=== PATIENT | male | born 1995 | race Caucasian/White ===

== ENCOUNTER 2018-07-15 09:02 | Emergency (ER) | payer OTHER, SELFPAY ==
[2018-07-15 09:11] VITALS: BP 160/96; PULSE 82; RESP 18; TEMP 36.4; O2SAT 100; BMI 26.6
--- NOTE | 2018-07-15 10:48 | ED.BACK ---
HPI - Back Pain/Injury General Chief Complaint: Back Pain/Injury Stated Complaint: LOWER RIGHT SIDE BACK PAIN Time Seen by Provider: 07/15/18 10:13 Source: patient Mode of arrival: ambulatory Limitations: no limitations History of Present Illness HPI Narrative: Patient comes to the emergency department complaining of right-sided back pain that started suddenly last night. Patient states he was feeling fine yesterday, and that he has not really had any other symptoms along with the back and flank pain. Patient states the pain radiates down into his right groin area. He denies any nausea or vomiting, other than feeling slightly nauseated when he drink a whole bunch of water. He denies any fevers. No abdominal pain otherwise. No dysuria. No hematuria. No diarrhea or constipation. Patient states he has had symptoms like this once before, but they were short lived and he never got a medical evaluation. He states his grandpa had lots of kidney stones, but that his father did not have any. Patient denies any strenuous activity with his back. He denies any repetitive motions. No distinct injury. No other complaints at this time. Related Data Home Medications Medication Instructions Recorded Confirmed albuterol sulfate [ProAir HFA] 2 puff INHALATION Q4H PRN 07/15/18 07/15/18 cetirizine [Zyrtec] 10 mg PO DAILY 07/15/18 07/15/18 duloxetine 30 mg PO DAILY 07/15/18 07/15/18 finasteride 1.25 mg PO DAILY 07/15/18 07/15/18 montelukast 10 mg PO DAILY 07/15/18 07/15/18 Previous Rx's Medication Instructions Recorded hydrocodone-acetaminophen 1 tab PO Q6H PRN #14 tab 07/15/18 tamsulosin [Flomax] 0.4 mg PO DAILY #7 cap 07/15/18 Allergies Allergy/AdvReac Type Severity Reaction Status Date / Time No Known Drug Allergies Allergy Verified 07/15/18 09:14 Review of Systems Constitutional Denies chills, Denies fever(s), Denies lethargy and Denies weakness Eyes Denies change in vision, Denies eye discharge, Denies irritation and Denies loss of vision ENT Ears, Nose, Mouth, and Throat: Denies change in voice, Denies neck pain and Denies sore throat Cardiovascular Denies chest pain, Denies irregular heart rhythm, Denies lightheadedness, Denies palpitations, Denies dyspnea, Denies dyspnea on exertion and Denies orthopnea Respiratory Denies cough, Denies dyspnea, Denies dyspnea on exertion and Denies wheezing Gastrointestinal Gastrointestinal: Denies abdominal pain, Denies change in bowel habits, Denies diarrhea, Denies nausea and Denies vomiting Genitourinary Denies hematuria, Denies flank pain, Denies urinary incontinence and Denies urinary urgency Musculoskeletal Denies neck pain Comments: Right flank pain, right CVA pain Integumentary/Breasts Denies pruritus, Denies erythema, Denies rash and Denies wounds Neurologic Denies confusion, Denies loss of vision and Denies weakness Psychiatric Denies anxiety, Denies confusion, Denies depression, Denies homicidal ideation and Denies suicidal ideation Endocrine Denies palpitations Hematologic/Lymphatic Denies easy bruising Allergic/Immunologic Denies wheezing [facility] Medical History Healthy adult (Acute) Social History Smoking Status: Never smoker Social History Smoking Status: Never smoker Exam Initial Vital Signs Initial Vital Signs: Vital Signs Temperature 97.5 F L 07/15/18 09:11 Pulse Rate 82 07/15/18 09:11 Respiratory Rate 18 07/15/18 09:11 Blood Pressure 160/96 H 07/15/18 09:11 Pulse Oximetry 100 07/15/18 09:11 Const General: cooperative and well developed Nutritional Appearance: well nourished Orientation: alert, awake, oriented x3 and not confused [facility] Head: normocephalic and atraumatic Ears: external ears normal Nose: external nose normal and No nasal discharge Face and sinus: face symmetric and No dry mucous membranes Mouth: oral mucosae normal and moist mucous membranes Teeth and gingiva: dentition normal Eyes General: appearance normal, both eyes and all related structures Eyelids: eyelids normal Conjunctivae: conjunctivae normal Sclera: sclerae normal Pupils: PERRL EOM: EOM intact bilaterally Neck Neck: normal visual inspection, trachea midline, No lymphadenopathy, No midline deformity and No JVD Lymphatic: No lymphedema Chest Chest: normal inspection of the chest Resp Effort & Inspection: normal respiratory effort, able to speak in complete sentences, no respiratory distress and no use of accessory muscles Auscultation: clear to auscultation bilaterally, no rales, no rhonchi and no wheezes Cardio Rate: regular rate Rhythm: regular rhythm Heart Sounds: no click, no gallops, no murmurs and no rubs Pulses: normal peripheral pulses GI Inspection: non-distended Palpation: soft, no hepatosplenomegaly, No guarding, No pulsatile mass and tender (Mild, right flank and lower quadrant. No rebound or guarding.) Auscultation: normal bowel sounds Back/Spine/Pelvis Back: CVA tenderness (Slight, right) Cervical Spine: cervical ROM normal and No pain with cervical ROM Thoracic/Lumbar Spine: thoracic and lumbar spine normal to inspection Skin General: no rashes or lesions noted, No jaundice and No petechiae Neuro General: alert, oriented x3, gait normal and no focal motor deficits Speech: speech normal Extrem General: full ROM, no clubbing, cyanosis or edema, no pedal edema and no calf tenderness Psych Appearance: well kempt Mental Status: mental status grossly normal Attitude: cooperative Thought Content: normal and suicidality Judgment: judgment good Course Course Narrative: Patient was worked up with UA and CT KUB without contrast. CT scan showed hydronephrosis and hydroureter extending to the UVJ on the right. No definite stone was seen, and the possibility was raised of a radiolucent stone or stricture. I discussed the findings with the patient, and felt that most likely since the patient had never had symptoms before, he had a radiolucent stone. However, I did discuss with him that it is important for him to follow up with Urology to sort this out, and to be sure that his blockage is clearing. Patient expressed understanding and agreed to plan. We have discussed the usual indications for return. Orders Ordered: ED Orders 07/15/18 10:47 CT kidney ureter bladder (KUB) Stat Vital Signs - 8 hr 07/15/18 09:11 Temperature 97.5 F L Pulse Rate 82 Respiratory Rate 18 Blood Pressure 160/96 H Pulse Oximetry 100 MDM - Back Pain/Injury Medical Records Attestation: I reviewed the patient's medical records. Lab Data Attestation: I reviewed the patient's lab results. Urine Dip Bedside Urine Glucose Negative Bedside Urine Bilirubin - Negative Bedside Urine Ketone - Negative Urine Specific [place] 1.015 Bedside Urine Occult Blood - Negative Bedside Urine pH 6.0 Bedside Urine Protein - Negative Bedside Urine Urobilinogen - Negative Bedside Urine Nitrite - Negative Bedside Urine Leukocytes - Negative Esterase Imaging Data CT scan - abdomen: Radiologist's impression: [address] [address] [address] Scan Report Signed Patient: Dimitri Martines [facility]#: [id number] : 1995Acct:[id number] Age/Sex: 23 / MDate of Service: 07/15/18 Loc: ED Accession Number: [id number] Procedure: CT kidney ureter bladder (KUB) Ordering Provider: Natalie Justice MD PROCEDURE: CT KIDNEY URETER BLADDER (KUB) INDICATIONS: Right flank pain TECHNIQUE: Noncontrast 5 mm thick sections acquired from the diaphragms to the symphysis. 5 mm thick coronal and sagittal reformats were then performed. For radiation dose reduction, the following was used: automated exposure control, adjustment of mA and/or kV according to patient size. COMPARISON: None. FINDINGS: Image quality: Excellent. Lung bases: Lung bases are clear. Heart size is normal. Urinary system: There is moderate to severe right hydronephrosis with a transition at the ureteropelvic junction. No discrete associated calcified obstructing stone demonstrated. No calcified renal stones demonstrated in either kidney. There is mild right perinephric stranding as well as asymmetric hypoattenuation of the right kidney. Left kidney demonstrates no hydronephrosis. Both ureters appear non-dilated throughout their expected courses. Bladder wall thickness is normal; no calcified bladder stones. Other solid organs: Noncontrast evaluation of the liver demonstrates no focal hepatic lesions. The gallbladder is nondistended without calcified gallstones. Pancreas is normal in contours. Spleen is normal in size. No adrenal nodules. Peritoneum and bowel: Unenhanced bowel loops demonstrate normal wall thickness and caliber. The appendix is normal in appearance. No free fluid or air. Nodes and vessels: No retroperitoneal or mesenteric adenopathy by size criteria. Aorta and inferior vena cava are normal in caliber. Abdominal wall: No ventral hernias. Pelvis: No free pelvic fluid. No inguinal hernias or adenopathy. Bones: No suspicious bony lesions. No vertebral body compression fractures. IMPRESSION: 1. Moderate to severe right hydronephrosis with perinephric stranding and asymmetric hypoattenuation of the right kidney secondary to an obstruction at the level of the UPJ. No obstructing stone visualized. The findings may represent a congenital UPJ obstruction secondary to stricture or possible crossing vessel. A noncalcified stone or a nonvisualized mass are also in the differential but considered less likely. Further evaluation may be obtained with a CT IVP if clinically indicated. 2. No evidence of appendicitis. Dictated by: Eugenio Maher M.D. on 07/15/2018 at 11:04 Approved by: Eugenio Maher M.D. on 07/15/2018 at 11:22 Discharge Plan Departure Patient Disposition: Home Clinical Impression: Renal colic, Kidney stone on right side Discharge Date/Time: 07/15/18 13:29 Interventions: ED Discharge Assessment Last Done: 07/15/18 13:29 Instructions: DI for Kidney Stones, DI for Flank Pain Activity Restrictions/Additional Instructions: Your CT scan shows obstruction of your right ureter, the tube that goes between your kidney and bladder, at the junction with the bladder. This is most likely from a kidney stone that is made of chemicals that do not show up well on CT scan. The stone is not distinctly seen. You will need to continue drinking plenty of water and follow up with a urologist to make sure that this is clearing up. There is no sign of infection. Prescriptions: New hydrocodone-acetaminophen 5-325 mg tablet 1 tab PO Q6H PRN (Reason: pain) Qty: 14 RF: 0 tamsulosin [Flomax] 0.4 mg capsule 0.4 mg PO DAILY Qty: 7 RF: 0 No Action montelukast 10 mg tablet 10 mg PO DAILY RF: 0 albuterol sulfate [ProAir HFA] 90 mcg/actuation HFA aerosol inhaler 2 puff Inhalation Q4H PRN (Reason: Shortness Of Breath) RF: 0 finasteride 5 mg tablet 1.25 mg PO DAILY RF: 0 duloxetine 30 mg capsule,delayed release(DR/EC) 30 mg PO DAILY RF: 0 cetirizine [Zyrtec] 10 mg Tablet 10 mg PO DAILY RF: 0 [facility]errals: [facility] [Provider Group] (Please call for next available appointment.)
--- NOTE | 2018-07-15 10:51 | ED_ITS ---
HPI - Back Pain/Injury General Chief Complaint: Back Pain/Injury Stated Complaint: LOWER RIGHT SIDE BACK PAIN Time Seen by Provider: 07/15/18 10:13 Source: patient Mode of arrival: ambulatory Limitations: no limitations History of Present Illness HPI Narrative: Patient comes to the emergency department complaining of right- sided back pain that started suddenly last night. Patient states he was feeling fine yesterday, and that he has not really had any other symptoms along with the back and flank pain. Patient states the pain radiates down into his right groin area. He denies any nausea or vomiting, other than feeling slightly nauseated when he drink a whole bunch of water. He denies any fevers. No abdominal pain otherwise. No dysuria. No hematuria. No diarrhea or constipation. Patient states he has had symptoms like this once before, but they were short lived and he never got a medical evaluation. He states his grandpa had lots of kidney stones, but that his father did not have any. Patient denies any strenuous activity with his back. He denies any repetitive motions. No distinct injury. No other complaints at this time. Related Data Home Medications Medication Instructions Recorded Confirmed albuterol sulfate [ProAir HFA] 2 puff INHALATION Q4H PRN 07/15/18 07/15/18 cetirizine [Zyrtec] 10 mg PO DAILY 07/15/18 07/15/18 duloxetine 30 mg PO DAILY 07/15/18 07/15/18 finasteride 1.25 mg PO DAILY 07/15/18 07/15/18 montelukast 10 mg PO DAILY 07/15/18 07/15/18 Previous Rx's Medication Instructions Recorded hydrocodone-acetaminophen 1 tab PO Q6H PRN #14 tab 07/15/18 tamsulosin [Flomax] 0.4 mg PO DAILY #7 cap 07/15/18 Allergies Allergy/AdvReac Type Severity Reaction Status Date / Time No Known Drug Allergies Allergy Verified 07/15/18 09:14 Review of Systems Constitutional Denies chills, Denies fever(s), Denies lethargy and Denies weakness Eyes Denies change in vision, Denies eye discharge, Denies irritation and Denies loss of vision ENT Ears, Nose, Mouth, and Throat: Denies change in voice, Denies neck pain and Denies sore throat Cardiovascular Denies chest pain, Denies irregular heart rhythm, Denies lightheadedness, Denies palpitations, Denies dyspnea, Denies dyspnea on exertion and Denies orthopnea Respiratory Denies cough, Denies dyspnea, Denies dyspnea on exertion and Denies wheezing Gastrointestinal Gastrointestinal: Denies abdominal pain, Denies change in bowel habits, Denies diarrhea, Denies nausea and Denies vomiting Genitourinary Denies hematuria, Denies flank pain, Denies urinary incontinence and Denies urinary urgency Musculoskeletal Denies neck pain Comments: Right flank pain, right CVA pain Integumentary/Breasts Denies pruritus, Denies erythema, Denies rash and Denies wounds Neurologic Denies confusion, Denies loss of vision and Denies weakness Psychiatric Denies anxiety, Denies confusion, Denies depression, Denies homicidal ideation and Denies suicidal ideation Endocrine Denies palpitations Hematologic/Lymphatic Denies easy bruising Allergic/Immunologic Denies wheezing [facility] Medical History Healthy adult (Acute) Social History Smoking Status: Never smoker Social History Smoking Status: Never smoker Exam Initial Vital Signs Initial Vital Signs: Vital Signs Temperature 97.5 F L 07/15/18 09:11 Pulse Rate 82 07/15/18 09:11 Respiratory Rate 18 07/15/18 09:11 Blood Pressure 160/96 H 07/15/18 09:11 Pulse Oximetry 100 07/15/18 09:11 Const General: cooperative and well developed Nutritional Appearance: well nourished Orientation: alert, awake, oriented x3 and not confused [facility] Head: normocephalic and atraumatic Ears: external ears normal Nose: external nose normal and No nasal discharge Face and sinus: face symmetric and No dry mucous membranes Mouth: oral mucosae normal and moist mucous membranes Teeth and gingiva: dentition normal Eyes General: appearance normal, both eyes and all related structures Eyelids: eyelids normal Conjunctivae: conjunctivae normal Sclera: sclerae normal Pupils: PERRL EOM: EOM intact bilaterally Neck Neck: normal visual inspection, trachea midline, No lymphadenopathy, No midline deformity and No JVD Lymphatic: No lymphedema Chest Chest: normal inspection of the chest Resp Effort & Inspection: normal respiratory effort, able to speak in complete sentences, no respiratory distress and no use of accessory muscles Auscultation: clear to auscultation bilaterally, no rales, no rhonchi and no wheezes Cardio Rate: regular rate Rhythm: regular rhythm Heart Sounds: no click, no gallops, no murmurs and no rubs Pulses: normal peripheral pulses GI Inspection: non-distended Palpation: soft, no hepatosplenomegaly, No guarding, No pulsatile mass and tender (Mild, right flank and lower quadrant. No rebound or guarding.) Auscultation: normal bowel sounds Back/Spine/Pelvis Back: CVA tenderness (Slight, right) Cervical Spine: cervical ROM normal and No pain with cervical ROM Thoracic/Lumbar Spine: thoracic and lumbar spine normal to inspection Skin General: no rashes or lesions noted, No jaundice and No petechiae Neuro General: alert, oriented x3, gait normal and no focal motor deficits Speech: speech normal Extrem General: full ROM, no clubbing, cyanosis or edema, no pedal edema and no calf tenderness Psych Appearance: well kempt Mental Status: mental status grossly normal Attitude: cooperative Thought Content: normal and suicidality Judgment: judgment good Course Course Narrative: Patient was worked up with UA and CT KUB without contrast. CT scan showed hydronephrosis and hydroureter extending to the UVJ on the right. No definite stone was seen, and the possibility was raised of a radiolucent stone or stricture. I discussed the findings with the patient, and felt that most likely since the patient had never had symptoms before, he had a rad iolucent stone. However, I did discuss with him that it is important for him to follow up with Urology to sort this out, and to be sure that his blockage is clearing. Patient expressed understanding and agreed to plan. We have discussed the usual indications for return. Orders Ordered: ED Orders 07/15/18 10:47 CT kidney ureter bladder (KUB) Stat Vital Signs - 8 hr 07/15/18 09:11 Temperature 97.5 F L Pulse Rate 82 Respiratory Rate 18 Blood Pressure 160/96 H Pulse Oximetry 100 MDM - Back Pain/Injury Medical Records Attestation: I reviewed the patient's medical records. Lab Data Attestation: I reviewed the patient's lab results. Urine Dip Bedside Urine Glucose Negative Bedside Urine Bilirubin - Negative Bedside Urine Ketone - Negative Urine Specific [place] 1.015 Bedside Urine Occult Blood - Negative Bedside Urine pH 6.0 Bedside Urine Protein - Negative Bedside Urine Urobilinogen - Negative Bedside Urine Nitrite - Negative Bedside Urine Leukocytes - Negative Esterase Imaging Data CT scan - abdomen: Radiologist's impression: [address] [address] [address] Scan Report Signed Patient: Dimitri Martines [facility]#: [id number] : 1995Acct:[id number] Age/Sex: 23 / MDate of Service: 07/15/18 Loc: ED Accession Number: [id number] Procedure: CT kidney ureter bladder (KUB) Ordering Provider: Natalie Justice MD PROCEDURE: CT KIDNEY URETER BLADDER (KUB) INDICATIONS: Right flank pain TECHNIQUE: Noncontrast 5 mm thick sections acquired from the diaphragms to the symphysis. 5 mm thick coronal and sagittal reformats were then performed. For radiation dose reduction, the following was used: automated exposure control, adjustment of mA and/or kV according to patient size. COMPARISON: None. FINDINGS: Image quality: Excellent. Lung bases: Lung bases are clear. Heart size is normal. Urinary system: There is moderate to severe right hydronephrosis with a transit ion at the ureteropelvic junction. No discrete associated calcified obstructing stone demonstrated. No calcified renal stones demonstrated in either kidney. There is mild right perinephric stranding as well as asymmetric hypoattenuation of the right kidney. Left kidney demonstrates no hydronephrosis. Both ureters appear non-dilated throughout their expected courses. Bladder wall thickness is normal; no calcified bladder stones. Other solid organs: Noncontrast evaluation of the liver demonstrates no focal hepatic lesions. The gallbladder is nondistended without calcified gallstones. Pancreas is normal in contours. Spleen is normal in size. No adrenal nodules. Peritoneum and bowel: Unenhanced bowel loops demonstrate normal wall thickness and caliber. The appendix is normal in appearance. No free fluid or air. Nodes and vessels: No retroperitoneal or mesenteric adenopathy by size criteria. Aorta and inferior vena cava are normal in caliber. Abdominal wall: No ventral hernias. Pelvis: No free pelvic fluid. No inguinal hernias or adenopathy. Bones: No suspicious bony lesions. No vertebral body compression fractures. IMPRESSION: 1. Moderate to severe right hydronephrosis with perinephric stranding and asymmetric hypoattenuation of the right kidney secondary to an obstruction at the level of the UPJ. No obstructing stone visualized. The findings may represent a congenital UPJ obstruction secondary to stricture or possible crossing vessel. A noncalcified stone or a nonvisualized mass are also in the differential but considered less likely. Further evaluation may be obtained with a CT IVP if clinically indicated. 2. No evidence of appendicitis. Dictated by: Eugenio Maher M.D. on 07/15/2018 at 11:04 Approved by: Eugenio Maher M.D. on 07/15/2018 at 11:22 Discharge Plan Departure Patient Disposition: Home Clinical Impression: Renal colic, Kidney stone on right side Discharge Date/Time: 07/15/18 13:29 Interventions: ED Discharge Assessment Last Done: 07/15/18 13:29 Instructions: DI for Kidney Stones, DI for Flank Pain Activity Restrictions/Additional Instructions: Your CT scan shows obstruction of your right ureter, the tube that goes between your kidney and bladder, at the junction with the bladder. This is most likely from a kidney stone that is made of chemicals that do not show up well on CT scan. The stone is not distinctly seen. You will need to continue drinking plenty of water and follow up with a urologist to make sure that this is clearing up. There is no sign of infection. Prescriptions: New hydrocodone-acetaminophen 5-325 mg tablet 1 tab PO Q6H PRN (Reason: pain) Qty: 14 RF: 0 tamsulosin [Flomax] 0.4 mg capsule 0.4 mg PO DAILY Qty: 7 RF: 0 No Action montelukast 10 mg tablet 10 mg PO DAILY RF: 0 albuterol sulfate [ProAir HFA] 90 mcg/actuation HFA aerosol inhaler 2 puff Inhalation Q4H PRN (Reason: Shortness Of Breath) RF: 0 finasteride 5 mg tablet 1.25 mg PO DAILY RF: 0 duloxetine 30 mg capsule,delayed release(DR/EC) 30 mg PO DAILY RF: 0 cetirizine [Zyrtec] 10 mg Tablet 10 mg PO DAILY RF: 0 Referrals: [facility]rology [Provider Group] (Please call for next available appointment.)
[2018-07-15 11:30] VITALS: BP 145/97; PULSE 52; RESP 16; O2SAT 99
[2018-07-15 12:30] VITALS: BP 153/93; PULSE 60; O2SAT 100
[2018-07-15 13:29] VITALS: BP 140/92; PULSE 58; RESP 18; O2SAT 100
== END 2018-07-15 13:29 | disposition home or self-care (01) ==
PROVIDERS: Emergency Provider Emergency Medicine
DX: N20.0 Calculus of kidney (principal); N13.30 Unspecified hydronephrosis
CPT/HCPCS: 74176; 81003; 99282; 99284